=== PATIENT | male | born 1955 | race Caucasian/White ===

== ENCOUNTER 2023-09-30 05:38 | Emergency (ER) | payer OTHER, MEDICARE ==
[2023-09-30 06:10] VITALS: BP 129/76; PULSE 80; RESP 18; TEMP 98.5; BMI 34.8
[2023-09-30] MEDS ORDERED: ACETAMINOPHEN 1000 MG/100 ML BAG IVPB ONE (06:24)
[2023-09-30 07:26] LABS: BASO % 0.5 % (0-2.0); EOS % 1.3 % (0-4.5); HEMATOCRIT 43.6 % (35.4-49); HEMOGLOBIN 14.1 GM/dL (11.7-16.9); LYMPH % 37.4 % (8-40); MCH 31.6 pg (25.7-33.7); MCHC 32.3 g/dl (32.0-35.9); MEAN CELL VOLUME 97.7 fl (80-96); MEAN PLT VOLUME 7.6 fl (7.5-11.1); MONO % 7.1 % (3.8-10.2); NEUT % 53.7 % (42.8-82.8); PLATELET COUNT 281 10^3/uL (134-434); RBC 4.46 M/mm3 (4.00-5.60); RDW 13.9 % (11.9-15.9); WHITE BLOOD COUNT 13.6 K/mm3 (4.0-10.0)
[2023-09-30 07:43] LABS: BLOOD UREA NITROGEN 12.6 mg/dL (7-18); CALCIUM 8.7 mg/dL (8.5-10.1); POTASSIUM 4.1 mmol/L (3.5-5.1)
[2023-09-30 07:44] LABS: ALBUMIN 2.7 g/dl (3.4-5.0)
[2023-09-30 07:47] LABS: CREATININE 0.9 mg/dL (0.55-1.3)
[2023-09-30 07:48] LABS: BILIRUBIN,TOTAL 0.4 mg/dL (0.2-1); TOT PROT 6.8 g/dl (6.4-8.2)
[2023-09-30] MEDS ORDERED: KETOROLAC TROMETHAMINE 30 MG/1 ML VIAL IVPUSH ONE (08:13)
[2023-09-30] MEDS ORDERED: METHOCARBAMOL 750 MG TAB PO ONE (08:14)
[2023-09-30] MEDS ORDERED: METHOCARBAMOL 500 MG TABLET ONE (08:31)
[2023-09-30] MEDS ORDERED: KETOROLAC TROMETHAMINE 30 MG/1 ML VIAL ONE (08:32)
[2023-09-30 11:09] LABS: URINE APPEARANCE CLEAR; URINE BILIRUBIN NEGATIVE (NEGATIVE); URINE COLOR YELLOW; URINE GLUCOSE (UA) NEGATIVE (NEGATIVE); URINE KETONE NEGATIVE (NEGATIVE); URINE LEUK ESTERASE NEGATIVE (NEGATIVE); URINE NITRITE NEGATIVE (NEGATIVE); URINE PROTEIN NEGATIVE (NEGATIVE); URINE UROBILINOGEN 0.2 mg/dL (0.2-1.0)
== END 2023-09-30 13:52 | disposition home or self-care (01) ==
LOC: JER 05:38
PROC: 3E033NZ Introduction of Analgesics, Hypnotics, Sedatives into Peripheral Vein, Percutaneous Approach (ICD-10-PCS; principal; 2023-09-30)
DX: M54.50 Low back pain, unspecified (principal); X50.0XXA Overexertion from strenuous movement or load, initial encounter
CPT/HCPCS: 36415; 72131-TC; 74176-TC; 80053; 81003; 85025; 87086; 93005; 93010; 99285-25